=== PATIENT | female | born 1965 | race African-American/Black ===

== ENCOUNTER 2020-01-29 22:24 | Emergency (ER) | payer OTHER ==
[~2020-01-29] VITALS: Ht 172.7 cm; Wt 91.0 kg
[2020-01-30] MEDS ORDERED: SODIUM CHLORIDE 0.9% 1,000 ML IV ONE (00:30)
[2020-01-30 00:58] LABS: BASOPHILS % 0.7 % (0.0-2.0); EOSINOPHILS % 0.7 % (0.0-5.0); HEMATOCRIT. 39.6 % (36.0-48.0); HEMOGLOBIN. 13.1 g/dL (12.0-16.0); LYMPHOCYTES % 24.4 % (20.0-50.0); MEAN CORPUSCULAR HEMOGLOBIN 31.4 pg (28.0-32.0); MEAN CORPUSCULAR VOLUME 95.3 fL (81.0-99.0); MEAN PLATELET VOLUME 8.6 fl (7.4-10.4); MONOCYTES % 7.6 % (2.0-8.0); NEUTROPHILS % 66.6 % (40.0-76.0); PLATELET 306 x1000/uL (130-400); RED BLOOD CELL COUNT 4.16 mill/uL (4.2-5.4); RED CELL DISTRIBUTION WIDTH 21.4 % (11.6-14.6)
[2020-01-30 01:04] LABS: CHLORIDE 105 mEq/L (98-107)
[2020-01-30] MEDS ORDERED: IOHEXOL-350 100 ML BOTTLE ONE (02:56)
[2020-01-30 03:21] VITALS: BP 131/74
== END 2020-01-30 03:24 | disposition home or self-care (01) ==
LOC: ER 22:24
DX: R07.89 Other chest pain (principal); E05.90 Thyrotoxicosis, unspecified without thyrotoxic crisis or storm
CPT/HCPCS: 36415; 71045; 71275; 80053; 83880; 85025; 93005; 96360; 99285; J7030; Q9967